=== PATIENT | male | born 1990 | race Caucasian/White ===

== ENCOUNTER 2019-08-11 11:00 | Emergency (ER) | payer OTHER ==
[~2019-08-11] VITALS: Ht 160 cm; Wt 60.3 kg
[2019-08-11 11:10] VITALS: BP 113/64
--- NOTE | 2019-08-11 13:12 | NUR ---
PT C/O HEADACHES X1 WEEK AND EPIGASTRIC PAIN X3 DAYS. PT STATES HE HAS NAUSEA, DENIES VOMITING AND DIARRHEA. DENIES BLURRED VISION AND DIZZINESS. PT STATES HE RAN OUT OF HUMALOG 2-3 WEEKS AGO. LUNG HAY CLEAR. ABD SOFT, NON TENDER. PT SITTING IN BED, RELAXED WITH FAMILY AT BEDSIDE. MEDHX: DM, ASTHMA, ANXIETY, DEPRESSION DENIES ALLERGIES
--- NOTE | 2019-08-11 14:09 | NUR ---
PT RESTING IN BED WITH EYES CLOSED. WILL CONTINUE TO MONITOR. VSS
[2019-08-11] MEDS ORDERED: FAMOTIDINE 20 MG/2 ML VIAL IVP ONE (16:05)
[2019-08-11] MEDS ORDERED: NACL 0.9% 1,000 ML IV ONE (16:05)
[2019-08-11] MEDS ORDERED: ONDANSETRON 4 MG/2 ML VIAL IVP ONE (16:05)
[2019-08-11 16:25] LABS: BASOPHILS % (AUTO) 0.4 % (0.0-2.0); EOSINOPHILS # (AUTO) 0.1 K/uL (0-0.4); EOSINOPHILS % (AUTO) 0.5 % (0.0-4.0); HEMATOCRIT 46.9 % (36-52); HEMOGLOBIN 16.2 g/dL (12.0-18.0); LYMPHOCYTES # (AUTO) 3.2 K/uL (2.0-11.5); MEAN CORPUSCULAR HEMOGLOBIN 30 pg (27-31); MEAN CORPUSCULAR HGB CONC 35 g/dL (33-37); MEAN CORPUSCULAR VOLUME 87.7 fL (80-94); MONOCYTES # (AUTO) 0.7 K/uL (0.8-1.0); MONOCYTES % (AUTO) 7.3 % (1.7-9.3); NEUTROPHILS % (AUTO) 59.8 % (42.2-75.2); PLATELET COUNT (AUTO) 194 K/uL (140-450); RED BLOOD CELL COUNT(AUTO) 5.35 MIL/uL (4.20-6.10); RED CELL DISTRIBUTION WIDTH 12.2 % (11.6-13.7)
[2019-08-11] MEDS ORDERED: ACETAMINOPHEN 325 MG TAB PO ONE (16:30)
[2019-08-11 16:36] LABS: ANION GAP 13.8 (8-16); CREATININE 0.6 mg/dL (0.7-1.3); POTASSIUM 3.8 mmol/L (3.5-5.1)
[2019-08-11] MEDS ORDERED: ACETAMINOPHEN EXTRA STRENGTH 500 MG TAB ONE (16:37)
[2019-08-11 16:42] LABS: ALBUMIN 3.5 g/dL (3.4-5.0); TOTAL BILIRUBIN 0.5 mg/dL (0.0-1.0)
--- NOTE | 2019-08-11 16:50 | NUR ---
PT STATES RELIEF OF HEADACHE. EATING IN BED. VSS.
--- NOTE | 2019-08-11 17:30 | NUR ---
BS 249, MADE MADE AWARE. PT ASKING PRESCRIPTION FOR NEEDLE, TALKEDTP PT. [facility].
--- NOTE | 2019-08-11 17:30 | NUR ---
Patient discharged with v/s stable. Written and verbal after care instructions given and explained. Patient alert, oriented and verbalized understanding of instructions. Ambulatory with steady gait. All questions addressed prior to discharge. ID band removed. Patient advised to follow up with PMD. Rx of HUMULIN R 100UNITS/ML given. Patient educated on indication of medication including possible reaction and side effects. Opportunity to ask questions provided and answered.
[2019-08-11 17:32] VITALS: BP 113/64
== END 2019-08-11 17:30 | disposition home or self-care (01) ==
LOC: MED 11:00
DX: E11.65 Type 2 diabetes mellitus with hyperglycemia (principal); R10.13 Epigastric pain
CPT/HCPCS: 36415; 80053; 82948; 85025; 96361; 96374; 96375; 99283; J2405; J3490; J7030

== ENCOUNTER 2021-09-10 08:27 | Emergency (ER) | payer MEDICAID, OTHER ==
[~2021-09-10] VITALS: Ht 162.6 cm; Wt 47.6 kg
--- NOTE | 2021-09-10 08:38 | NUR ---
PATIENT AMBULATED TO BED 8, STEADY GAIT. Addendum: 09/10/21 at 0859 by [facility] PATIENT AMBULATED TO BED 8, WITH WALKER. SISTER AT BEDSIDE.
[2021-09-10 08:41] VITALS: BP 127/90
--- NOTE | 2021-09-10 08:44 | NUR ---
31 YO MALE BIBS ACCOMPANIED BY SISTER WITH PAIN C/O 08/10 TO RIGHT KNEE THAT RADIATES TO HIP AND CALF. HX OF INFECTION TO R KNEE RESULTING IN SX WITH DRAINAGE OF PUS. PATIENT HAS APT WITH PCP ON FRIDAY, REQUESTING REFERAL. PT ALSO STATES HX OF [address] USE, AND NO LONGER USING AND IS CURRENTLY DETOXED. HE IS CURRENTLY TAKING IBUPROFEN THAT IS NOT EFFECTIVE, WISHES NOT TO BE GIVEN OPIATES. PATIENT HAS SCAR TO RIGHT KNEE DT SURGERY. PATIENT IS A&O X4, AMBULATES WITH WALKER, VSS. PMH: REJI MINER
--- NOTE | 2021-09-10 08:49 | NUR ---
DR QUINTANA AT BEDSIDE EXAMINING PT
--- NOTE | 2021-09-10 09:08 | NUR ---
RAD AT BEDSIDE FOR XRAY
[2021-09-10] MEDS ORDERED: CYCLOBENZAPRINE 10 MG TAB ONE (09:59)
[2021-09-10] MEDS ORDERED: CYCLOBENZAPRINE 10 MG TAB PO ONE (10:00)
[2021-09-10] MEDS ORDERED: NAPR-1704 PO (11:07)
[2021-09-10 11:16] VITALS: BP 130/90
--- NOTE | 2021-09-10 11:17 | NUR ---
Patient discharged with v/s stable. Written and verbal after care instructions given and explained. Patient alert, oriented and verbalized understanding of instructions. Wheel Chair Assisted with by caregiver. All questions addressed prior to discharge. ID band removed. Patient advised to follow up with PMD. Rx of NAPROXEN given. Patient educated on indication of medication including possible reaction and side effects. Opportunity to ask questions provided and answered.
== END 2021-09-10 11:17 | disposition home or self-care (01) ==
LOC: MED 08:27
DX: M25.561 Pain in right knee (principal); J45.909 Unspecified asthma, uncomplicated; E11.9 Type 2 diabetes mellitus without complications; Z79.899 Other long term (current) drug therapy
CPT/HCPCS: 73562; 93971; 99284; Q0092

== ENCOUNTER 2021-09-22 14:03 | Emergency (ER) | payer MEDICAID ==
[~2021-09-22] VITALS: Ht 160 cm; Wt 43.1 kg
[~2021-09-22 14:03] MED LIST: NAPR-1704 PO
[2021-09-22 14:36] VITALS: BP 138/86
--- NOTE | 2021-09-22 14:40 | NUR ---
PT SENT TO LOBBY
--- NOTE | 2021-09-22 14:50 | NUR ---
31/M BIB SELF WITH C/O RIGHT KNEE PAIN. STATES HE HAD SURGERY IN JULY AND WAS GIVEN TYLENOL AND NAPROSYN BUT STATES HE HASNT FOUND RELIEF FROM THE PAIN. DENIES ANY RECENT INJURY OR TRAUMA. STATES PRIOR TO HIS SURGERY HE IS ABLE TO AMBULATE WITHOUT ASSISTANCE BUT HAS BEEN USING A PERSONAL WALKER TO AMBULATE SINCE. SURGICAL SITE LOOKS CLEAN, NO SIGNS OF INFECTION, DENIES FEVER OR CHILLS.
[2021-09-22] MEDS ORDERED: HYDROcodone/APAP 5/325 MG 1 TAB TAB PO ONE (15:05)
[2021-09-22] MEDS ORDERED: CYCL-654 PO (15:22)
--- NOTE | 2021-09-22 15:48 | NUR ---
Patient discharged with v/s stable. Written and verbal after care instructions ABOUT MUSCLE CRAMPS/SPASMS AND CHRONIC PAINgiven and explained. Patient alert, oriented and verbalized understanding of instructions. Wheel Chair Assisted TO LOBBY TO PTS WALKER All questions addressed prior to discharge. ID band removed. Patient advised to follow up with PMD. Rx of CYCLOBENZAPRINE given. Patient educated on indication of medication including possible reaction and side effects. Opportunity to ask questions provided and answered.
== END 2021-09-22 15:48 | disposition home or self-care (01) ==
LOC: MED 14:03
DX: M25.561 Pain in right knee (principal); M79.604 Pain in right leg; G89.29 Other chronic pain; E11.9 Type 2 diabetes mellitus without complications; F41.9 Anxiety disorder, unspecified; F17.210 Nicotine dependence, cigarettes, uncomplicated; Z79.1 Long term (current) use of non-steroidal anti-inflammatories (NSAID)
CPT/HCPCS: 99283

== ENCOUNTER 2021-09-28 17:02 | Emergency (ER) | payer MEDICAID ==
[~2021-09-28] VITALS: Ht 162.6 cm; Wt 43.1 kg
[~2021-09-28 17:02] MED LIST changes: +CYCL-654 PO
[2021-09-28 17:03] VITALS: BP 145/102
--- NOTE | 2021-09-28 17:17 | NUR ---
ALEXANDRU DAVIS AT BEDSIDE EXAMINING PT
[2021-09-28] MEDS ORDERED: KETOROLAC 30 MG/ML VIAL IM ONE (17:25)
--- NOTE | 2021-09-28 17:30 | NUR ---
31YO M C/O LEFT KNEE PAIN S/P KNEE SURGERY IN AUG 2021. PT COMPLAINS OF SHARP 10/10 PAIN AND HAS BEEN UNSUCCESSFUL IN GETTING PHYSICAL THERAPY DUE TO INSURANCE PROBLEMS. PT STATES THAT HE SOUGHT CONSULT WITH HIS PRIMARY PHYSICIAN BUT WAS ONLY GIVEN TYLENOL FOR SEVERE PAIN. PT ALSO COMPLAINS OF LEFT MOLAR PAIN X 2 MONTHS BUT DOES NOT HAVE A DENTIST APPT. LAST TYLENOL TAKEN 4 HOURS AGO. NO BRUSING OR SWELLING NOTED. PT ABLE TO MOVE LOWER RIGHT EXTREMITY. PMH: DM, ANXIETY, IBS MEDS: METFORMIN, ZOLOFT NKA
[2021-09-28] MEDS ORDERED: ACET-10509 PO (17:31)
[2021-09-28] MEDS ORDERED: HYDR-637 PO (17:31)
[2021-09-28 17:58] VITALS: BP 145/102
--- NOTE | 2021-09-28 17:59 | NUR ---
Patient discharged with v/s stable. Written and verbal after care instructions given and explained. Patient alert, oriented and verbalized understanding of instructions. Ambulatory with steady gait. All questions addressed prior to discharge. ID band removed. Patient advised to follow up with PMD. Rx of ACEETAMINOPHEN TAB,HYDROXYSINE HCI given. Patient educated on indication of medication including possible reaction and side effects. Opportunity to ask questions provided and answered.
--- NOTE | 2021-09-28 18:00 | NUR ---
The patient's care was reviewed and supervised by Russell Key RN.
== END 2021-09-28 17:59 | disposition home or self-care (01) ==
LOC: MED 17:02
DX: G89.29 Other chronic pain (principal); M25.561 Pain in right knee; M25.562 Pain in left knee; E11.9 Type 2 diabetes mellitus without complications
CPT/HCPCS: 96372; 99283; J1885

== ENCOUNTER 2021-10-01 13:09 | Emergency (ER) | payer MEDICAID ==
[~2021-10-01] VITALS: Ht 162.6 cm; Wt 45.4 kg
[~2021-10-01 13:09] MED LIST changes: +ACET-10509 PO; +HYDR-637 PO
[2021-10-01 13:11] VITALS: BP 136/92
--- NOTE | 2021-10-01 13:44 | NUR ---
31/M BIB SELF WITH C/O LEFT HAND, RIGHT KNEE AND BACK PAIN. PATIENT STATES HE HAD SURGERY ON HIS RIGHT KNEE IN JULY AND STATES HE HAS BEEN UNABLE TO GET IN TO SEE HIS DOCTOR. PATIENT ALSO STATES HE HAD A "SPLINTER" ON HIS LEFT HAND AND STATES "I THINK ITS INFECTED." PATIENT ALSO PRESENTS WITH RED, TENDER ABSCESS TO BACK FOR 3 DAYS, STATES "I THINK ITS A SPIDER BITE." PATIENT REPORTS INTERMITTENT EPISODES OF CHILLS BUT DENIES FEVER, CP, SOB, N/V/D.
[2021-10-01] MEDS: SULFAMETH/TRIMETH DS 800/160MG 1 TAB PO ONE (13:54)
[2021-10-01] MEDS: KETOROLAC 30 MG/ML VIAL IM ONE (13:54)
[2021-10-01] MEDS: cephALEXin 500 MG CAP PO ONE (13:55)
[2021-10-01] MEDS ORDERED: CYCL-654 PO (14:40)
[2021-10-01] MEDS ORDERED: NAPR-1704 PO (14:40)
[2021-10-01] MEDS ORDERED: SULF-59 PO (14:40)
[2021-10-01] MEDS ORDERED: CEPH-588 PO (14:40)
[2021-10-01] MEDS: HYDROcodone/APAP 5/325 MG 1 TAB TAB PO ONE (14:54)
[2021-10-01 15:22] VITALS: BP 143/95
--- NOTE | 2021-10-01 15:28 | NUR ---
Patient discharged with v/s stable. Written and verbal after care instructions ABOUT CELLULITIS AND CHRONIC KNEE PAIN given and explained. Patient alert, oriented and verbalized understanding of instructions. Ambulatory with steady gait. All questions addressed prior to discharge. ID band removed. Patient advised to follow up with PMD. Rx of KEFLEX, NAPROSYN, BACTRIM DS TABLET, CYCLOBENZAPRINE given. Patient educated on indication of medication including possible reaction and side effects. Opportunity to ask questions provided and answered.
== END 2021-10-01 15:28 | disposition home or self-care (01) ==
LOC: MED 13:09
DX: L03.114 Cellulitis of left upper limb (principal); M25.561 Pain in right knee; E11.9 Type 2 diabetes mellitus without complications; Z79.899 Other long term (current) drug therapy; Z79.1 Long term (current) use of non-steroidal anti-inflammatories (NSAID); Z79.2 Long term (current) use of antibiotics
CPT/HCPCS: 96372; 99284; J1885

== ENCOUNTER 2021-10-04 18:50 | Emergency (ER) | payer MEDICAID ==
[~2021-10-04] VITALS: Ht 162.6 cm; Wt 38.6 kg
[~2021-10-04 18:50] MED LIST changes: +CEPH-588 PO; +SULF-59 PO
[2021-10-04 19:25] VITALS: BP 138/95
--- NOTE | 2021-10-04 19:52 | NUR ---
COLLECTED KIMBERLY SWAB AND SENT TO LAB
--- NOTE | 2021-10-04 19:59 | NUR ---
PATIENT AMBULATED TO BED 11
--- NOTE | 2021-10-04 20:16 | NUR ---
PATIENT REPORTS PAIN RELATED TO MULTIPLE SORES. PATIENT HAS SORE TO LEFT PALMAR AREA, L3 POSTERIOR AREA, UPPER POSTERIOR, AND OCCIPITAL SCALP AREA. PATIENT REPORTS 3 MONTHS SOBER FROM METH USE AND HAS TENDENCY TO PICK AT SCABS.
[2021-10-04] MEDS ORDERED: KETOROLAC 30 MG/ML VIAL IVP ONE (20:30)
[2021-10-04] MEDS ORDERED: NACL 0.9% 1,000 ML IV ONE (20:30)
[2021-10-04 20:46] LABS: BASOPHILS # (AUTO) 0.1 K/uL (0.00-0.22); BASOPHILS % (AUTO) 0.4 % (0.0-2.0); EOSINOPHILS # (AUTO) 0.1 K/uL (0-0.4); EOSINOPHILS % (AUTO) 0.6 % (0.0-4.0); HEMATOCRIT 42.9 % (36-52); HEMOGLOBIN 14.9 g/dL (12.0-18.0); LYMPHOCYTES # (AUTO) 2.6 K/uL (2.0-11.5); LYMPHOCYTES % (AUTO) 22.4 % (20.5-51.1); MEAN CORPUSCULAR HEMOGLOBIN 30 pg (27-31); MEAN CORPUSCULAR HGB CONC 35 g/dL (33-37); MEAN CORPUSCULAR VOLUME 85.9 fL (80-94); MONOCYTES # (AUTO) 0.7 K/uL (0.8-1.0); MONOCYTES % (AUTO) 6.3 % (1.7-9.3); NEUTROPHILS # (AUTO) 8.3 K/uL (1.8-7.7); NEUTROPHILS % (AUTO) 70.3 % (42.2-75.2); PLATELET COUNT (AUTO) 403 K/uL (140-450); RED CELL DISTRIBUTION WIDTH 14.4 % (11.6-13.7); WHITE BLOOD COUNT (AUTO) 11.8 K/uL (4.8-10.8)
[2021-10-04 20:51] LABS: ALBUMIN 3.5 g/dL (3.4-5.0); ANION GAP 12.5 (8-16); CARBON DIOXIDE 30.1 mmol/L (21-32); CREATININE 0.7 mg/dL (0.6-1.3); POTASSIUM 3.6 mmol/L (3.5-5.1); TOTAL BILIRUBIN 0.3 mg/dL (0.0-1.0)
[2021-10-04] MEDS ORDERED: MORPHINE SULFATE 4 MG/ML SYR IVP ONE (21:15)
--- NOTE | 2021-10-04 21:30 | NUR ---
ER MD AT BEDSIDE FOR PROCEDURE
[2021-10-04] MEDS ORDERED: ACET-8386 PO (21:40)
[2021-10-04] MEDS ORDERED: SULF-58 PO (21:40)
--- NOTE | 2021-10-04 21:48 | NUR ---
PATIENT CLEARED FOR DISCHARGE AT THIS TIME. PATIENT HAS NO FURTHER COMPLAINTS OR CONCERNS FOLLOWINF DISCHARGE TEACHING. ADVISED TO FOLLOW UP WITH PCP
== END 2021-10-04 21:48 | disposition home or self-care (01) ==
LOC: MED 18:50
DX: L02.512 Cutaneous abscess of left hand (principal); E11.65 Type 2 diabetes mellitus with hyperglycemia; G89.29 Other chronic pain; M25.561 Pain in right knee; F17.210 Nicotine dependence, cigarettes, uncomplicated; F15.10 Other stimulant abuse, uncomplicated; Z20.822 Contact with and (suspected) exposure to COVID-19
CPT/HCPCS: 10060; 36415; 80053; 83605; 85025; 85651; 86140; 87040; 87426; 96361; 96374; 96375; 99284; J1885; J2270; J7030

== ENCOUNTER 2021-10-08 13:03 | Emergency (ER) | payer MEDICAID ==
[~2021-10-08] VITALS: Ht 162.6 cm; Wt 45.4 kg
[~2021-10-08 13:03] MED LIST changes: +ACET-8386 PO; +SULF-58 PO
[2021-10-08 13:58] VITALS: BP 142/92
--- NOTE | 2021-10-08 14:06 | NUR ---
PT AMB TO BED 12
[2021-10-08] MEDS ORDERED: HYDROcodone/APAP 7.5/325 MG 1 TAB PO ONE (14:45)
--- NOTE | 2021-10-08 14:50 | NUR ---
31 Y/O MALE C/O LEFT CHEST PAIN , NAUSEA, DIARRHEA X TODAY. P 138 AT THIS TIME. BLOOD SUGAR 478 AT THIS TIME. PT STATES 9/10 PAIN FOR 2 MONTHS. PMH: SKIN ABSCESS, IBS, DM NKA
--- NOTE | 2021-10-08 15:16 | NUR ---
LAB AT BEDSIDE
--- NOTE | 2021-10-08 15:22 | NUR ---
XRAY AT BEDSIDE
[2021-10-08 15:31] LABS: BASOPHILS # (AUTO) 0.1 K/uL (0.00-0.22); BASOPHILS % (AUTO) 0.5 % (0.0-2.0); EOSINOPHILS % (AUTO) 0.3 % (0.0-4.0); HEMATOCRIT 42.9 % (36-52); HEMOGLOBIN 14.8 g/dL (12.0-18.0); LYMPHOCYTES # (AUTO) 3.3 K/uL (2.0-11.5); LYMPHOCYTES % (AUTO) 24.5 % (20.5-51.1); MEAN CORPUSCULAR HEMOGLOBIN 29 pg (27-31); MEAN CORPUSCULAR HGB CONC 34 g/dL (33-37); MEAN CORPUSCULAR VOLUME 85.2 fL (80-94); MONOCYTES % (AUTO) 7.7 % (1.7-9.3); NEUTROPHILS # (AUTO) 8.9 K/uL (1.8-7.7); PLATELET COUNT (AUTO) 418 K/uL (140-450); RED BLOOD CELL COUNT(AUTO) 5.04 MIL/uL (4.20-6.10); RED CELL DISTRIBUTION WIDTH 13.9 % (11.6-13.7); WHITE BLOOD COUNT (AUTO) 13.3 K/uL (4.8-10.8)
[2021-10-08 15:48] LABS: ALBUMIN 3.4 g/dL (3.4-5.0); ANION GAP 12.2 (8-16); CARBON DIOXIDE 26.8 mmol/L (21-32); CREATININE 0.6 mg/dL (0.6-1.3); TOTAL BILIRUBIN 0.2 mg/dL (0.0-1.0)
[2021-10-08] MEDS ORDERED: NACL 0.9% 1,000 ML IV ONE ×2 (15:55→18:55)
[2021-10-08 16:10] LABS: APPEARANCE,URINE CLEAR (CLEAR); BILIRUBIN,URINE NEGATIVE (NEGATIVE); BLOOD, URINE NEGATIVE (NEGATIVE); COLOR,URINE YELLOW (YELLOW); LEUKOCYTE ESTERASE ,URINE NEGATIVE (NEGATIVE); NITRITE, URINE NEGATIVE (NEGATIVE); UGLUCOSE 3+ (NEGATIVE)
[2021-10-08] MEDS ORDERED: CYCLOBENZAPRINE 10 MG TAB PO ONE (16:20)
[2021-10-08 17:05] LABS: BARBITURATE, URINE NEGATIVE ng/ml (NEG <=200); BENZODIAZEPINE, URINE NEGATIVE ng/mL (NEG <=200); CANNABINOID, URINE POSITIVE ng/mL (NEG <=50); COCAINE, URINE NEGATIVE ng/mL (NEG <=300); OPIATE, URINE POSITIVE ng/mL (NEG <=2000); PHENCYCLIDINE SCREEN,URINE NEGATIVE ng/mL (NEG <=25)
--- NOTE | 2021-10-08 17:05 | NUR ---
PT TAKEN TO CT SCAN VIA ROBERT
--- NOTE | 2021-10-08 17:24 | NUR ---
PT RETURNED FROM CT
--- NOTE | 2021-10-08 19:18 | NUR ---
REPORT RECEIVED FROM JUAN M ANDREWS FOR CONTINUITY OF PT CARE AT THIS TIME.
--- NOTE | 2021-10-08 19:19 | NUR ---
Pt report given to ADOLFO MCGOWAN. Transfer of care at this time.
--- NOTE | 2021-10-08 19:22 | NUR ---
PT LAYING IN BED LOCKED IN LOWEST POSITION W X2 SIDERAILS UP FOR PT SAFETY. PT REPORTS 9/10 CHRONIC R KNEE PAIN, DENIES RESENT INJURY. PT REPORTS CHEST PAIN IMPROVEMENT, DENIES SOB, NAUSEA, OR FURTHER DIARRHEA EPISODES. PT REPORTS HE WAS FEELING ANXIOUS EARLIER BUT NOT ANYMORE.VSS. NAD NOTED, WILL CONTINUE TO MONITOR.
[2021-10-08] MEDS ORDERED: KETOROLAC 30 MG/ML VIAL IVP ONE (19:40)
[2021-10-08] MEDS ORDERED: LID5T TP (20:08)
[2021-10-08] MEDS ORDERED: CYCL-711 PO (20:08)
[2021-10-08] MEDS ORDERED: IBUP-2213 PO (20:08)
[2021-10-08] MEDS ORDERED: KETOROLAC 30 MG/ML VIAL ONE (20:52)
--- NOTE | 2021-10-08 20:57 | NUR ---
PT REFUSED TORADOL MEDICATION UPON MEDICATION OPENED.
--- NOTE | 2021-10-08 21:00 | NUR ---
CALLED PT MOTHER PER PT REQUEST FOR PICK. MOTHER ETA FOR [facility] 15MIN.
[2021-10-08 21:10] VITALS: BP 134/96
--- NOTE | 2021-10-08 21:10 | NUR ---
Patient discharged with v/s stable. Written and verbal after care instructions given and explained. Patient alert, oriented and verbalized understanding of instructions. Ambulatory with steady gait. All questions addressed prior to discharge. ID band removed. Patient advised to follow up with PMD. Rx of FLEXERIL, LIDODERM PATCH given. Patient educated on indication of medication including possible reaction and side effects. Opportunity to ask questions provided and answered.
== END 2021-10-08 21:10 | disposition home or self-care (01) ==
LOC: MED 13:03
DX: M25.561 Pain in right knee (principal); R07.89 Other chest pain; R41.9 Unspecified symptoms and signs involving cognitive functions and awareness; E11.65 Type 2 diabetes mellitus with hyperglycemia; Z79.899 Other long term (current) drug therapy; Z79.1 Long term (current) use of non-steroidal anti-inflammatories (NSAID); Z79.2 Long term (current) use of antibiotics; Z79.891 Long term (current) use of opiate analgesic
CPT/HCPCS: 36415; 71045; 71275; 80053; 80305; 81003; 83605; 84484; 85025; 85379; 87040; 93005; 96360; 96361; 99285; J1885; J7030; Q9967

== ENCOUNTER 2021-10-14 15:13 | Emergency (ER) | payer MEDICAID ==
[~2021-10-14] VITALS: Ht 162.6 cm; Wt 45.4 kg
[~2021-10-14 15:13] MED LIST changes: +CYCL-711 PO; +IBUP-2213 PO; +LID5T TP
[2021-10-14 15:33] VITALS: BP 121/82
[2021-10-14] MEDS ORDERED: NACL 0.9% 1,000 ML IV ONE ×2 (16:15→17:15)
[2021-10-14] MEDS ORDERED: KETOROLAC 30 MG/ML VIAL IVP ONE (16:25)
--- NOTE | 2021-10-14 16:26 | NUR ---
Karoline mishra in ED - 10/14/21 at 1627 by [email or web address] LAB BEDSIDE WITH PATIENT
--- NOTE | 2021-10-14 16:28 | NUR ---
LAB BEDSIDE WITH PATIENT. URINE HANDED TO SHIM PLUG CUTTER BEDSIDE
--- NOTE | 2021-10-14 16:45 | NUR ---
URINE COLLECTED AND IN THE LAB.
[2021-10-14 16:48] LABS: APPEARANCE,URINE CLEAR (CLEAR); BILIRUBIN,URINE NEGATIVE (NEGATIVE); BLOOD, URINE NEGATIVE (NEGATIVE); LEUKOCYTE ESTERASE ,URINE NEGATIVE (NEGATIVE); NITRITE, URINE NEGATIVE (NEGATIVE); PH,URINE 6.5 (5.0-9.0); UGLUCOSE 3+ (NEGATIVE)
[2021-10-14 16:53] LABS: COLOR,URINE STRAW (YELLOW)
[2021-10-14 17:00] LABS: BASOPHILS % (AUTO) 0.4 % (0.0-2.0); EOSINOPHILS # (AUTO) 0.1 K/uL (0-0.4); EOSINOPHILS % (AUTO) 0.4 % (0.0-4.0); HEMOGLOBIN 14.4 g/dL (12.0-18.0); LYMPHOCYTES # (AUTO) 2.9 K/uL (2.0-11.5); LYMPHOCYTES % (AUTO) 24.5 % (20.5-51.1); MEAN CORPUSCULAR HEMOGLOBIN 29 pg (27-31); MEAN CORPUSCULAR HGB CONC 34 g/dL (33-37); MEAN CORPUSCULAR VOLUME 85.3 fL (80-94); MONOCYTES # (AUTO) 0.8 K/uL (0.8-1.0); MONOCYTES % (AUTO) 6.4 % (1.7-9.3); NEUTROPHILS # (AUTO) 8.1 K/uL (1.8-7.7); NEUTROPHILS % (AUTO) 68.3 % (42.2-75.2); PLATELET COUNT (AUTO) 376 K/uL (140-450); RED BLOOD CELL COUNT(AUTO) 4.93 MIL/uL (4.20-6.10); RED CELL DISTRIBUTION WIDTH 13.8 % (11.6-13.7); WHITE BLOOD COUNT (AUTO) 11.9 K/uL (4.8-10.8)
[2021-10-14 17:05] LABS: ALBUMIN 3.5 g/dL (3.4-5.0); ANION GAP 13.1 (8-16); CARBON DIOXIDE 29.5 mmol/L (21-32); CREATININE 0.7 mg/dL (0.6-1.3); POTASSIUM 3.6 mmol/L (3.5-5.1); TOTAL BILIRUBIN 0.3 mg/dL (0.0-1.0)
--- NOTE | 2021-10-14 17:24 | NUR ---
31 Y/O MALE C/O HEADACHE AND LEG PAIN 06/09 DESCRIBES THROBBING, BLURED VISION X YESTERDAY. BLOOD SUGAR 559 , P 133 AT THIS TIME. DENIES FEVER/CHILLS. DENIES N/V/D. DENIES PMH NKA
--- NOTE | 2021-10-14 19:15 | NUR ---
PER ERMD PT TO BE D/C
--- NOTE | 2021-10-14 19:19 | NUR ---
Pt report given to NAEEM MCGOWAN. Transfer of care at this time.
--- NOTE | 2021-10-14 19:40 | NUR ---
PT ATTEMPTTED TO PROVIDE PT WITH [facility] PT YELLING AND CURSING AT THIS RN. SIGNS [facility] "FUCK" ASKS THIS RN TO CALL MOTHER. MOTHER AGREES TO PICK PT UP. PT INFORMED. PROVIDED PRIVACY FOR PT TO GET DRESSED.
[2021-10-14 20:05] VITALS: BP 121/82
--- NOTE | 2021-10-14 20:06 | NUR ---
Patient discharged with v/s stable. Written and verbal after care instructions given and explained. Patient verbalized understanding. Ambulatory with steady gait. All questions addressed prior to discharge. Advised to follow up with PMD.
== END 2021-10-14 20:06 | disposition home or self-care (01) ==
LOC: MED 15:13
DX: E11.65 Type 2 diabetes mellitus with hyperglycemia (principal); R25.2 Cramp and spasm; Z98.890 Other specified postprocedural states; Z79.899 Other long term (current) drug therapy; Z79.1 Long term (current) use of non-steroidal anti-inflammatories (NSAID); Z79.891 Long term (current) use of opiate analgesic; Z79.2 Long term (current) use of antibiotics
CPT/HCPCS: 36415; 80053; 81003; 82803; 85025; 96361; 96374; 99283; J1885; J7030